=== PATIENT | female | born 1955 | race Asian ===

== ENCOUNTER 2018-02-18 18:21 | Emergency (ER) | payer MEDICAID ==
[~2018-02-18] VITALS: Ht 162.6 cm; Wt 65.4 kg
[2018-02-18 18:35] VITALS: Ht 162.6 cm; Wt 65.4 kg
[2018-02-18 20:07] VITALS: BP 143/78
== END 2018-02-18 20:05 | disposition home or self-care (01) ==
LOC: ED 18:21
DX: S61.211A Laceration without foreign body of left index finger without damage to nail, initial encounter (principal); W26.0XXA Contact with knife, initial encounter; Y93.89 Activity, other specified; Y92.89 Other specified places as the place of occurrence of the external cause; Y99.8 Other external cause status
CPT/HCPCS: J2001